=== PATIENT | female | born 1945 | race Native Hawaiian/Other Pacific Islander ===

== ENCOUNTER 2016-11-06 08:18 | Outpatient (CLI) | payer OTHER ==
[~2016-11-06 08:18] MED LIST: ASPIRIN81 M1 PO; CELE200C2 PO; CYCL10TA35 PO; LIPITOR20 MG PO; UNITH DIRECT88 MCG PO
[2016-11-06 09:38] LABS: POTASSIUM 4.1 mmol/L (3.6-5.2); SODIUM 136 mmol/L (136-145)
[2016-11-06 09:45] LABS: PLATELET COUNT 212 K/uL (152-353)
== END 2016-11-06 19:05 | disposition home or self-care (01) ==
LOC: LABW 08:18
PROVIDERS: Physician Assistant
DX: E03.8 Other specified hypothyroidism (principal); D51.0 Vitamin B12 deficiency anemia due to intrinsic factor deficiency; E78.00 Pure hypercholesterolemia, unspecified; R51 Headache
CPT/HCPCS: 36415; 80053; 80061; 82607; 84439; 84443; 85027

== ENCOUNTER 2017-03-24 10:33 | Outpatient (CLI) | payer OTHER | END 2017-03-24 11:35 | disposition home or self-care (01) | LOC: MAMMO 10:33 | DX: Z12.31 Encounter for screening mammogram for malignant neoplasm of breast (principal) | CPT/HCPCS: G0202-TC ==

== ENCOUNTER 2017-05-20 10:48 | Outpatient (CLI) | payer OTHER | END 2017-05-20 11:50 | disposition home or self-care (01) | LOC: LABW 10:48 | DX: E03.8 Other specified hypothyroidism (principal) | CPT/HCPCS: 36415; 84439; 84443 ==

== ENCOUNTER 2017-07-13 08:31 | Outpatient (CLI) | payer OTHER ==
[2017-07-13 08:53] LABS: PLATELET COUNT 207 K/uL (152-353)
[2017-07-13 10:05] LABS: POTASSIUM 3.9 mmol/L (3.6-5.2)
== END 2017-07-13 09:35 | disposition home or self-care (01) ==
LOC: LABW 08:31
PROVIDERS: Physician Assistant
DX: E03.8 Other specified hypothyroidism (principal); D51.0 Vitamin B12 deficiency anemia due to intrinsic factor deficiency; E78.00 Pure hypercholesterolemia, unspecified; R79.89 Other specified abnormal findings of blood chemistry
CPT/HCPCS: 36415; 80053; 80061; 82607; 83036; 84439; 84443; 85027

== ENCOUNTER 2017-08-06 07:53 | Day surgery (SDC) | payer OTHER | END 2017-08-06 10:52 | LOC: OR 07:53 | PROC: 0DJD8ZZ Inspection of Lower Intestinal Tract, Via Natural or Artificial Opening Endoscopic (ICD-10-PCS; principal; 2017-08-06) | DX: Z86.010 Personal history of colon polyps (principal); Z80.0 Family history of malignant neoplasm of digestive organs; Z12.11 Encounter for screening for malignant neoplasm of colon | CPT/HCPCS: J2001; J2250; J2704; J3010; J3490 ==

== ENCOUNTER 2017-09-11 11:23 | Outpatient (CLI) | payer OTHER | END 2017-09-11 23:38 | disposition home or self-care (01) | LOC: LABW 11:23 | DX: E03.8 Other specified hypothyroidism (principal) | CPT/HCPCS: 36415; 84439; 84443 ==

== ENCOUNTER 2017-10-07 09:08 | Outpatient (CLI) | payer OTHER | END 2017-10-07 19:18 | disposition home or self-care (01) | LOC: LABW 09:08 | DX: Z01.818 Encounter for other preprocedural examination (principal); E78.00 Pure hypercholesterolemia, unspecified | CPT/HCPCS: 93005 ==

== ENCOUNTER 2017-10-12 10:00 | Outpatient (CLI) | payer OTHER ==
[2017-10-12 11:21] LABS: PLATELET COUNT 202 K/uL (152-353)
== END 2017-10-12 19:18 | disposition home or self-care (01) ==
LOC: LABW 10:00
PROVIDERS: Orthopaedic Surgery Hand Surgery
DX: Z01.818 Encounter for other preprocedural examination (principal); E78.00 Pure hypercholesterolemia, unspecified
CPT/HCPCS: 85027

== ENCOUNTER 2018-04-08 09:08 | Outpatient (CLI) | payer OTHER | END 2018-04-08 23:10 | disposition home or self-care (01) | LOC: MAMMO 09:08 | DX: Z12.31 Encounter for screening mammogram for malignant neoplasm of breast (principal); Z78.0 Asymptomatic menopausal state ==

== ENCOUNTER 2018-07-21 08:19 | Outpatient (CLI) | payer OTHER ==
[2018-07-21 09:01] LABS: PLATELET COUNT 216 K/uL (152-353)
[2018-07-21 09:35] LABS: POTASSIUM 4.2 mmol/L (3.6-5.2)
== END 2018-07-21 19:34 | disposition home or self-care (01) ==
LOC: LABW 08:19
PROVIDERS: Physician Assistant
DX: E03.9 Hypothyroidism, unspecified (principal); D51.0 Vitamin B12 deficiency anemia due to intrinsic factor deficiency; E78.00 Pure hypercholesterolemia, unspecified; Z79.899 Other long term (current) drug therapy
CPT/HCPCS: 36415; 80053; 80061; 82607; 83036; 84439; 84443; 85027

== ENCOUNTER 2018-07-29 08:58 | Outpatient (CLI) | payer OTHER | END 2018-07-29 19:22 | disposition home or self-care (01) | LOC: US 08:58 | DX: Z13.6 Encounter for screening for cardiovascular disorders (principal) ==

== ENCOUNTER 2019-05-18 10:44 | Outpatient (CLI) | payer OTHER | END 2019-05-18 20:10 | disposition home or self-care (01) | LOC: MAMMO 10:44 | DX: Z12.31 Encounter for screening mammogram for malignant neoplasm of breast (principal) ==

== ENCOUNTER 2019-07-19 08:55 | Outpatient (CLI) | payer OTHER ==
[2019-07-19 09:36] LABS: POTASSIUM 4.6 mmol/L (3.6-5.2)
[2019-07-19 09:56] LABS: PLATELET COUNT 200 K/uL (152-353)
== END 2019-07-19 22:26 | disposition home or self-care (01) ==
LOC: LABW 08:55
PROVIDERS: Physician Assistant
DX: E03.8 Other specified hypothyroidism (principal); D51.0 Vitamin B12 deficiency anemia due to intrinsic factor deficiency; E78.00 Pure hypercholesterolemia, unspecified; Z09 Encounter for follow-up examination after completed treatment for conditions other than malignant neoplasm
CPT/HCPCS: 36415; 80053; 80061; 82607; 84439; 84443; 85027

== ENCOUNTER 2020-07-23 10:16 | Outpatient (CLI) | payer OTHER ==
[2020-07-23 10:50] LABS: PLATELET COUNT 220 K/uL (152-353)
[2020-07-23 11:08] LABS: POTASSIUM 4.2 mmol/L (3.6-5.2)
== END 2020-07-23 19:06 | disposition home or self-care (01) ==
LOC: LABW 10:16
PROVIDERS: ATTEND Internal Medicine
DX: Z00.00 Encounter for general adult medical examination without abnormal findings (principal); Z13.820 Encounter for screening for osteoporosis; Z79.899 Other long term (current) drug therapy
CPT/HCPCS: 36415; 80053; 80061; 82306; 84439; 84443; 85027

== ENCOUNTER 2020-07-30 13:00 | Outpatient (CLI) | payer OTHER | END 2020-07-30 22:15 | disposition home or self-care (01) | LOC: MAMMO 13:00 | PROVIDERS: ATTEND Internal Medicine | DX: Z12.31 Encounter for screening mammogram for malignant neoplasm of breast (principal); Z13.820 Encounter for screening for osteoporosis; N95.8 Other specified menopausal and perimenopausal disorders ==

== ENCOUNTER 2021-05-07 14:22 | Outpatient (CLI) | payer OTHER | END 2021-05-07 20:43 | disposition home or self-care (01) | LOC: US 14:22 | PROVIDERS: ATTEND Internal Medicine | DX: R22.1 Localized swelling, mass and lump, neck (principal) ==

== ENCOUNTER 2021-08-07 09:53 | Outpatient (CLI) | payer OTHER | END 2021-08-07 20:22 | disposition home or self-care (01) | LOC: MAMMO 09:53 | PROVIDERS: ATTEND Internal Medicine | DX: Z12.31 Encounter for screening mammogram for malignant neoplasm of breast (principal) ==

== ENCOUNTER 2021-08-20 14:00 | Outpatient (CLI) | payer OTHER | END 2021-08-20 18:54 | disposition home or self-care (01) | LOC: MAMMO 14:00 | PROVIDERS: ATTEND Internal Medicine | DX: R92.8 Other abnormal and inconclusive findings on diagnostic imaging of breast (principal) ==

== ENCOUNTER 2022-10-06 16:09 | Emergency (ER) | payer OTHER ==
[~2022-10-06] VITALS: Ht 167.6 cm; Wt 56.7 kg
[2022-10-06 16:09] VITALS: TEMP 97.6
[2022-10-06 16:37] LABS: PLATELET COUNT 188 K/uL (152-353)
[2022-10-06 19:30] VITALS: BP 145/75
== END 2022-10-06 20:00 | disposition home or self-care (01) ==
LOC: ED 16:09
PROVIDERS: Emergency Medicine Emergency Medical Services
DX: F03.90 Unspecified dementia, unspecified severity, without behavioral disturbance, psychotic disturbance, mood disturbance, and anxiety (principal); Z79.82 Long term (current) use of aspirin; Z51.81 Encounter for therapeutic drug level monitoring; M25.552 Pain in left hip
CPT/HCPCS: 80053; 80307; 81002; 83735; 84443; 84484; 85027; 93005; 96361; 96374; 99283; J2405

== ENCOUNTER 2022-10-30 14:35 | Outpatient (CLI) | payer OTHER | END 2022-10-30 19:21 | disposition home or self-care (01) | LOC: RAD 14:35 | PROVIDERS: ATTEND Internal Medicine | DX: M51.16 Intervertebral disc disorders with radiculopathy, lumbar region (principal); R26.81 Unsteadiness on feet; M25.552 Pain in left hip ==

== ENCOUNTER 2023-02-05 11:35 | Outpatient (CLI) | payer OTHER | END 2023-02-05 19:20 | disposition home or self-care (01) | LOC: RAD 11:35 | PROVIDERS: ATTEND Internal Medicine | DX: M79.89 Other specified soft tissue disorders (principal) ==

== ENCOUNTER 2023-02-12 16:00 | Inpatient (IN) | payer OTHER | END 2023-02-16 12:00 | disposition home health service (06) | LOC: PAVB 16:00 | PROVIDERS: ADMIT Internal Medicine; ATTEND Internal Medicine | DX: S72.044D Nondisplaced fracture of base of neck of right femur, subsequent encounter for closed fracture with routine healing (principal); M51.16 Intervertebral disc disorders with radiculopathy, lumbar region; M19.90 Unspecified osteoarthritis, unspecified site; Z96.642 Presence of left artificial hip joint; M62.81 Muscle weakness (generalized); R26.2 Difficulty in walking, not elsewhere classified; R26.81 Unsteadiness on feet; R41.841 Cognitive communication deficit; R54 Age-related physical debility; Z74.1 Need for assistance with personal care | CPT/HCPCS: 87081 ==

== ENCOUNTER 2023-02-23 11:46 | Outpatient (CLI) | payer OTHER | END 2023-02-23 19:22 | disposition home or self-care (01) | LOC: US 11:46 | PROVIDERS: ATTEND Internal Medicine | DX: M79.89 Other specified soft tissue disorders (principal) ==

== ENCOUNTER 2023-03-04 13:11 | Outpatient (CLI) | payer OTHER ==
[2023-03-04 13:50] LABS: PLATELET COUNT 246 K/uL (152-353)
[2023-03-04 14:04] LABS: POTASSIUM 4.7 mmol/L (3.6-5.2)
== END 2023-03-04 19:02 | disposition home or self-care (01) ==
LOC: LAB 13:11
PROVIDERS: ATTEND Internal Medicine
DX: R41.82 Altered mental status, unspecified (principal); E03.8 Other specified hypothyroidism
CPT/HCPCS: 80053; 81002; 82607; 82746; 84443; 85027; 85379; 85652; 86038

== ENCOUNTER 2023-03-04 16:31 | Outpatient (CLI) | payer OTHER | END 2023-03-04 19:04 | disposition home or self-care (01) | LOC: CT 16:31 | PROVIDERS: ATTEND Internal Medicine | DX: R79.89 Other specified abnormal findings of blood chemistry (principal) | CPT/HCPCS: Q9963 ==

== ENCOUNTER 2023-03-11 12:21 | Outpatient (CLI) | payer OTHER ==
[2023-03-11 13:01] LABS: PLATELET COUNT 208 K/uL (152-353)
== END 2023-03-11 20:29 | disposition home or self-care (01) ==
LOC: LAB 12:21
PROVIDERS: ATTEND Internal Medicine
DX: D64.89 Other specified anemias (principal)
CPT/HCPCS: 85027

== ENCOUNTER 2023-03-12 11:11 | Outpatient (CLI) | payer OTHER | END 2023-03-12 19:22 | disposition home or self-care (01) | LOC: MRI 11:11 | PROVIDERS: ATTEND Psychiatry & Neurology Neurology | DX: R41.82 Altered mental status, unspecified (principal) ==

== ENCOUNTER 2023-03-26 13:30 | Outpatient (CLI) | payer OTHER ==
[2023-03-26 14:08] LABS: PLATELET COUNT 264 K/uL (152-353)
== END 2023-03-26 20:55 | disposition home or self-care (01) ==
LOC: LAB 13:30
PROVIDERS: ATTEND Internal Medicine
DX: D64.89 Other specified anemias (principal)
CPT/HCPCS: 85027